=== PATIENT | female | born 2000 | race Caucasian/White ===

== ENCOUNTER 2020-11-05 16:51 | Emergency (ER) | payer SELFPAY ==
[2020-11-05 17:02] VITALS: BP 118/78; PULSE 107; RESP 18; TEMP 36.8; O2SAT 100; BMI 24.5
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
[2020-11-05] MEDS: acetaminophen 500 mg Tablet 1000 MG PO (18:09)
[2020-11-05 18:51] VITALS: BP 109/71; PULSE 105; RESP 18; O2SAT 100
== END 2020-11-05 18:53 | disposition home or self-care (01) ==
PROVIDERS: Emergency Provider Physician Assistant
DX: Z04.1 Encounter for examination and observation following transport accident (principal); V59.50XA Passenger in pick-up truck or van injured in collision with unspecified motor vehicles in traffic accident, initial encounter
CPT/HCPCS: 12345; 70450; 70486; 71101; 72125; 73610; 99281; 99283